=== PATIENT | male | born 1960 | race Caucasian/White ===

== ENCOUNTER 2017-09-19 11:14 | Day surgery (SDC) | payer OTHER ==
[2017-09-19] MEDS ORDERED: PROPOFOL 200 MG/20 ML VIAL ONE (12:08)
[2017-09-19] MEDS ORDERED: PROPOFOL 200 MG/20 ML VIAL IVP ONE (12:20)
[2017-09-19] MEDS ORDERED: fentaNYL 100 MCG/2 ML INJ ONE ×2 (12:31→13:40)
[2017-09-19] MEDS ORDERED: PROPOFOL/EMULSION 1,000 MG/100 ML BOTTLE IV ONE (12:33)
[2017-09-19] MEDS ORDERED: fentaNYL 100 MCG/2 ML INJ IVP ONE (12:45)
[2017-09-19] MEDS ORDERED: REMIFENTANIL HCL 1 MG VIAL ONE (13:40)
[2017-09-19] MEDS ORDERED: PROPOFOL/EMULSION 500 MG/50 ML BOTTLE IV ONE (13:41)
--- NOTE | 2017-09-19 13:51 | PDANEPAE ---
ANE History of Present Illness 57 yo for CR LASHONDA ANE Past Medical History - Cardiovascular History Hx Hypertension: No Hx Arrhythmias: No Hx Chest Pain: No Hx Coronary Artery / Peripheral Vascular Disease: No Hx CHF / Valvular Disease: Yes Hx Palpitations: No - Pulmonary History Hx COPD: No Hx Asthma/Reactive Airway Disease: No Hx Oxygen in Use at Home: No - Endocrine History Hx Diabetes: No ANE Review of Systems Review of Systems: - Exercise capacity METS (RN): 4 METS ANE Patient History - Allergies Allergies/Adverse Reactions: No Known Allergies Allergy (Unverified 09/19/17 11:15) - Home Medications Home medications: home medication list seen and reviewed Home Medications: Levothyroxine 09/19/17 [Last Taken Unknown] - Anes Hx Anes Hx: no prior problems - Smoking Hx Smoking Status: Never smoked ANE Labs/Vital Signs - Vital Signs Blood Pressure: 128/80 Heart Rate: 72 Respiratory Rate: 16 O2 Sat (%): 100 Height: 5 ft 9 in Weight: 99.79 kg ANE Physical Exam - Airway Neck exam: FROM Mallampati Score: Class 2 Mouth exam: normal dental/mouth exam - Cardiovascular Cardiovascular: regular rate and rhythym - ASA Status ASA Status: II ANE Anesthesia Plan Anesthesia Plan: general endotracheal anesthesia
--- NOTE | 2017-09-19 14:22 | GHP ---
[f rep st] PREOP HISTORY AND PHYSICAL DATE OF ADMISSION: 09/19/2017 DIAGNOSIS: Right hip arthroplasty with posterior dislocation. HISTORY OF PRESENT ILLNESS: The patient is a 57-year-old gentleman, who was doing yoga exercise when his hip went out. We were unable to reduce it in the emergency room under sedation. He is brought to the OR for closed and possibly open reduction. ALLERGIES: None. MEDICATIONS: Levothyroxine. PREVIOUS SURGERIES: Rotator cuff repairs and bilateral total hip arthroplasties. REVIEW OF SYSTEMS: Negative for a 10-point evaluation. PHYSICAL EXAMINATION: GENERAL: Alert, oriented, and cooperative with the exam: HEENT: Exam within normal limits. CHEST: Clear. CARDIAC: Regular rate and rhythm. ABDOMEN: Nontender. EXTREMITIE S: He is tender with any sort of range of motion of the hip. The hip is shortened and internally ro tated. He prefers a flexed position. DIAGNOSTIC DATA: X-rays show a posterior dislocation of a right total hip. PLAN: The patient will undergo attempted closed reduction of the right hip under general anesthesia. If unsuccessful, an open reduction will be performed. /[id number]/MODL
[2017-09-19] MEDS ORDERED: HYDROCODONE/APAP 5/325 TAB PO PRN (14:49)
[2017-09-19] MEDS ORDERED: ONDANSETRON 4 MG/2 ML VIAL IVP PRN (14:49)
[2017-09-19] MEDS ORDERED: NALOXONE HCL 0.4 MG/ML INJ IVP PRN (14:49)
[2017-09-19] MEDS ORDERED: fentaNYL 100 MCG/2 ML INJ IVP PRN (14:49)
--- NOTE | 2017-09-19 15:08 | GOP ---
[f rep st] OPERATIVE REPORT DATE OF OPERATION: 09/19/2017 SURGEON: Pablo Castillo MD SPRING ENCASER: BRITTA Calix. PREOPERATIVE DIAGNOSIS: Dislocation right total hip. POSTOPERATIVE DIAGNOSIS: Dislocation right total hip. PROCEDURE PERFORMED: Relocation of right dislocated total hip under fluoroscopic control and general anesthesia. FINDINGS: DESCRIPTION OF PROCEDURE: The patient was taken to the operating room, administered general anesthesia, placed in the supine position on the radiolucent table. The fluoroscopic unit was brought into position. Multiple attempts were initially performed to relocate the hip without success. We obtained the services of one of the stronger PAs from the ER. With his help, we were able to manipulate it back into position and felt a solid clunk. The patient's leg lengths were equalized afterwards. He had the appropriate rotation. He was placed into an abduction pillow. He was referred back to recovery room in stable condition. There were no operative complications. COMPLICATIONS: None. /[id number]/MODL MTDD
--- NOTE | 2017-09-19 15:08 | GOP ---
[f rep st] OPERATIVE REPORT DATE OF OPERATION: 09/19/2017 SURGEON: Pablo Castillo MD [place] ATTENDANT: BRITTA Calix. PREOPERATIVE DIAGNOSIS: Dislocation right total hip. POSTOPERATIVE DIAGNOSIS: Dislocation right total hip. PROCEDURE PERFORMED: Relocation of right dislocated total hip under fluoroscopic control and general anesthesia. FINDINGS: DESCRIPTION OF PROCEDURE: The patient was taken to the operating room, administered general anesthesia, placed in the supine position on the radiolucent table. The fluoroscopic unit was brought into position. Multiple attempts were initially performed to relocate the hip without success. We obtained the services of one of the stronger PAs from the ER. With his help, we were able to manipulate it back into position and felt a solid clunk. The patient's leg lengths were equalized afterwards. He had the appropriate rotation. He was placed into an abduction pillow. He was referred back to recovery room in stable condition. There were no operative complications. COMPLICATIONS: None. /[id number]/MODL MTDD
--- NOTE | 2017-09-19 15:08 | GOP ---
[f rep st] OPERATIVE REPORT DATE OF OPERATION: 09/19/2017 SURGEON: Pablo Castillo MD DESIGN TECHNICIAN: BRITTA Calix. PREOPERATIVE DIAGNOSIS: Dislocation right total hip. POSTOPERATIVE DIAGNOSIS: Dislocation right total hip. PROCEDURE PERFORMED: Relocation of right dislocated total hip under fluoroscopic control and general anesthesia. FINDINGS: DESCRIPTION OF PROCEDURE: The patient was taken to the operating room, administered general anesthesia, placed in the supine position on the radiolucent table. The fluoroscopic unit was brought into position. Multiple attempts were initially performed to relocate the hip without success. We obtained the services of one of the stronger PAs from the ER. With his help, we were able to manipulate it back into position and felt a solid clunk. The patient's leg lengths were equalized afterwards. He had the appropriate rotation. He was placed into an abduction pillow. He was referred back to recovery room in stable condition. There were no operative complications. COMPLICATIONS: None. /[id number]/MODL MTDD
[2017-09-19 15:27] VITALS: PULSE 68; TEMP 97.3
[2017-09-19 16:00] VITALS: BP 124/78; RESP 14; O2SAT 93
--- NOTE | 2017-09-19 16:29 | POSTANESTH ---
Post Anesthetic Evaluation Cardiovascular Status: Normal, Stable Respiratory Status: Normal, Stable Level of Consciousness/Mental Status: Can Participate in Eval Pain Control: Adequate, Prn Tx Ordered Nausea/Vomiting Control: Adequate, Prn Tx Ordered Complications Possibly Related to Anesthesia: None Noted
--- NOTE | 2017-09-20 09:33 | EDPHY ---
H & P Stated Complaint: R hip pain after dance squat-hx bilat hip replacemnts - Personal History Current Tetanus/Diphtheria Vaccine: Unsure Current Tetanus Diphtheria and Acellular Pertussis (TDAP): Unsure - Medical/Surgical History Hx Asthma: No Hx Chronic Respiratory Disease: No Hx Diabetes: No Hx Cardiac Disease: No Hx Renal Disease: No Hx Cirrhosis: No Hx Alcoholism: No Hx HIV/AIDS: No Hx Splenectomy or Spleen Trauma: No Other PMH: bilat hip replacmts. L shoulder surgery. hypothyroid - Social History Smoking Status: Never smoked Time Seen by Provider: 09/19/17 11:45 HPI/ROS: Chief complaint: Right hip dislocation History of present illness: This is a 57-year-old male who reports a history of a right hip replacement 18 years ago who presents to the emergency department concerned he has dislocated his hip again. Patient dislocated his hip 2 months ago and had it reduced. This is the 2nd time he believes he has dislocated it. He was dancing and performing a deep squat when it came out. Reports mild pain. There was no direct trauma. He denies other associated signs or symptoms including no abnormal coolness or paresthesias in the leg. Review of systems: A 10 point review of systems was obtained and other than described above was negative (Prakash Mari) - Physical Exam Exam: General Appearance: Alert, no distress. Eyes: Pupils equal and round no pallor or injection. ENT, Mouth: Mucous membranes moist. Oropharynx is unremarkable. Respiratory: There are no retractions, lungs are clear to auscultation. Cardiovascular: Regular rate and rhythm. DP and PT pulses 2+ bilaterally. Gastrointestinal: Abdomen is soft and non tender, no masses, bowel sounds normal. Neurological: Alert and oriented x4. Sensation intact throughout the right leg. Skin: Warm and dry, no rashes. Musculoskeletal: The right leg is shortened and internally rotated Psychiatric: Patient is oriented X 3, there is no agitation. (Prakash Mari) Constitutional: Initial Vital Signs Temperature (C) 36.5 C 09/19/17 11:17 Heart Rate 82 09/19/17 11:17 Respiratory Rate 16 09/19/17 11:17 Blood Pressure 158/100 H 09/19/17 11:17 O2 Sat (%) 98 09/19/17 11:17 O2 Delivery Mode [Post Non-Rebreather Mask Procedure 3rd] O2 Delivery Mode [Post Non-Rebreather Mask Procedure 2nd] O2 Delivery Mode [Post Non-Rebreather Mask Procedure 1st] O2 Delivery Mode [Procedural Room Air 6th] O2 Delivery Mode [Procedural Non-Rebreather Mask 5th] O2 Delivery Mode [Procedural Non-Rebreather Mask 4th] O2 Delivery Mode [Procedural Non-Rebreather Mask 3rd] O2 Delivery Mode [Procedural Non-Rebreather Mask 2nd] O2 Delivery Mode [Procedural Non-Rebreather Mask 1st] O2 Delivery Mode Nasal Cannula O2 (L/minute) 2 Allergies/Adverse Reactions: No Known Allergies Allergy (Unverified 09/19/17 11:15) Home Medications: Medication Instructions Recorded Levothyroxine 09/19/17 Medical Decision Making - Diagnostics Imaging: I viewed and interpreted images myself Procedures: Conscious sedation was performed by my attending physician javier De Oliveira using propofol. Please see his note. Procedure: Dislocation reduction. Attached were made at reducing the patient's right hip without success. Post reduction x-ray demonstrates continued dislocation of the right hip. The procedure was performed by myself. (Prakash Mari) ED Course/Re-evaluation: Patient is seen in conjunction with my secondary supervising physician Dr. Cali Gonzalez. Patient presents to the emergency department for right hip dislocation. His right leg is neurovascularly intact. X-ray confirms a hip dislocation. Conscious sedation was performed in the emergency room and despite interventions by myself Dr. Cali Gonzalez and on-call orthopedics Dr. Pablo Castillo we were unable to relocate the hip. He will be taken to the OR for definitive care by Dr. Castillo. (Prakash Mari) Procedure: Conscious sedation. Indication: Hip dislocation I worked with PATRICK mari to obtain good sedation for hip dislocation that is diagnosed on x-ray. The patient is an appropriate candidate to tolerate procedural sedation. The patient's vital signs and mental status are appropriate. The risks, benefits and alternatives of the sedation were discussed with the patient. The patient is ASA classification 1. The patient' s Mallampati airway score was 1 and the patient did meet the 3-3-2 airway measurements. A time out was completed. The patient was sedated with propofol 240 mg, fentanyl 100 mg IV. The patient was monitored with continuous pulse oximetry, monitor car operator and end tidal CO2. There were no complications and no significant hypoxemia. I performed both the sedation and the procedure. The total time I spent at the bedside during the procedural sedation was 20 minutes. The patient was examined after the procedural sedation and has returned to their pre-sedation baseline with normal vital signs and a normal examination. The reduction was not successful. Dr. Castillo, orthopedist was in the emergency department. The patient is really sedated with another 200 mg of propofol. Attempts at reduction with Dr. Castillo and myself were also unsuccessful. The patient will be taken to the operating room for better sedation and hip reduction (Cali Gonzalez) Differential Diagnosis: Included but not limited to contusion, sprain or strain, bony fracture, joint dislocation (Prakash Mari) - Data Points Medications Given: Discontinued Medications Fentanyl (Sublimaze) 100 mcg IVP EDNOW ONE Stop: 09/19/17 12:46 Last Admin: 09/19/17 12:45 Dose: 100 mcg Propofol (Diprivan) 260 mg IVP EDNOW ONE Stop: 09/19/17 12:21 Last Admin: 09/19/17 12:25 Dose: 260 mg Departure - Departure Disposition: To OP Cath/Surgery Clinical Impression: Hip dislocation, right Qualifiers: Encounter type: initial encounter Qualified Code(s): S73.004A - Unspecified dislocation of right hip, initial encounter Condition: Good
--- NOTE | 2017-09-20 09:44 | EDPHY ---
PATRICK Addendum - Addendum .: I was asked by Dr. Pablo Castillo to come to the operating room to assist in the reduction of the hip that I had initially seen in the emergency room. This was not under sterile condition as we were attempting closed reduction under general anesthesia. Procedure: Dislocation reduction. The right hip was reduced in the usual fashion without complications. Patient had good peripheral pulses after the reduction. Post reduction x-ray demonstrates reduction of the joint to the anatomic position. The procedure was performed by myself as well as Dr. Pablo Castillo and his OR staff.
== END 2017-09-19 16:20 | disposition home or self-care (01) ==
LOC: FSGY 13:20
PROVIDERS: ATTEND Orthopaedic Surgery Sports Medicine
PROC: 0SS9XZZ Reposition Right Hip Joint, External Approach (ICD-10-PCS; principal; 2017-09-19 13:45)
DX: T84.020A Dislocation of internal right hip prosthesis, initial encounter (principal); Y93.42 Activity, yoga; Z96.643 Presence of artificial hip joint, bilateral
CPT/HCPCS: J2704; J3010